=== PATIENT | male | born 1990 | race Caucasian/White ===

== ENCOUNTER 2019-01-12 11:34 | Emergency (ER) | payer OTHER ==
[2019-01-12 11:43] VITALS: BP 105/50; PULSE 60; TEMP 98; BMI 24.6
--- NOTE | 2019-01-12 11:52 | PDOC ---
History of Present Illness - General Chief Complaint: Injury Stated Complaint: RT ANKLE INJURY Time Seen by Provider: 01/12/19 11:50 History Source: Patient - History of Present Illness Initial Comments: 01/12/19 12:01 Chief complaint: ankle injury 28-year-old male complaining of right ankle pain after injury yesterday, playing soccer. Painful to walk. GENERAL/CONSTITUTIONAL: No fever, weakness. dizziness HEAD, EYES, EARS, NOSE AND THROAT: No change in vision. No ear pain or discharge. No sore throat. CARDIOVASCULAR: No chest pain RESPIRATORY: No shortness of breath or cough GASTROINTESTINAL: No pain, nausea, vomiting, diarrhea or constipation GENITOURINARY: No dysuria MUSCULOSKELETAL: No neck or back pain, +right ankle SKIN: No rash NEUROLOGIC: No headache, vertigo, loss of consciousness, or loss of sensation. GENERAL: The patient is awake, alert, and fully oriented, in no acute distress. HEAD: Normal with no signs of trauma. EYES: Pupils equal, round and reactive to light, sclera anicteric, conjunctiva clear. ENT: pharynx: no erythema, no exudate, uvula midline NECK: supple CHEST: clear, nontender, rr EXTREMITIES: The lower extremity with lateral malleoli or swelling at the ankle , no fifth metatarsal tenderness, no other swelling or tenderness, good range of motion, neurovascular intact. Rest of extremities, normal range of motion, no edema. NEUROLOGICAL: Normal speech, normal gait. SKIN: Warm, Dry 01/12/19 14:27 Timing/Duration: resolved prior to arrival Past History - Past Medical History Allergies/Adverse Reactions: Allergies Allergy/AdvReac Type Severity Reaction Status Date / Time No Known Allergies Allergy Verified 01/12/19 11:43 Home Medications: Ambulatory Orders Pseudoephedrine HCl [Sudafed] 30 mg PO Q6H #20 tablet 12/04/15 COPD: No - Suicide/Smoking/Psychosocial Hx Smoking History: Never smoked Information on smoking cessation initiated: No Hx Alcohol Use: No Drug/Substance Use Hx: No *Physical Exam - Vital Signs Last Vital Signs Temp Pulse Resp BP Pulse Ox 98 F 60 18 105/50 L 98 01/12/19 11:38 01/12/19 11:38 01/12/19 11:38 01/12/19 11:38 01/12/19 11:38 Procedures - Splinting Splint Location: Right: Ankle Pre-Proc Neuro Vasc Exam: normal Pre-Made Type: aircast Post-Proc Neuro Vasc Exam: normal Guille Bandage: no Medical Decision Making - Medical Decision Making 01/12/19 14:24 The 28-year-old male with right ankle injury, x-ray was negative, will put Aircast and crutches Patient is ambulatory in the ER Discussed issues, findings, results, applicable medications and treatments and follow-up. All these were understood and all questions were answered *DC/Admit/Observation/Transfer Diagnosis at time of Disposition: Right ankle injury Qualifiers: Encounter type: initial encounter Qualified Code(s): S99.911A - Unspecified injury of right ankle, initial encounter - Discharge Dispostion Disposition: HOME Condition at time of disposition: Stable Decision to Admit order: No - Referrals Referrals: Ankush Anderson MD [Staff Physician] - - Patient Instructions Printed Discharge Instructions: DI for Ankle Sprain Additional Instructions: elevate, wear splint, use crutches apply ice for 20 minutes every 2 hours for 2 days. you can take motrin 600 mg every 6 hours for pain call orthopedist for appointment - Post Discharge Activity Forms/Work/School Notes: Back to Work
[2019-01-12] MEDS ORDERED: IBUPROFEN 600 MG TABLET (FP) PO ONE ×3 (11:58→13:07)
== END 2019-01-12 13:17 | disposition home or self-care (01) ==
LOC: JERFT 11:34
PROC: 2W3QX1Z Immobilization of Right Lower Leg using Splint (ICD-10-PCS; principal; 2019-01-12)
DX: S99.811A Other specified injuries of right ankle, initial encounter (principal); X50.1XXA Overexertion from prolonged static or awkward postures, initial encounter; Y93.66 Activity, soccer; Y92.322 Soccer field as the place of occurrence of the external cause; Y99.8 Other external cause status
CPT/HCPCS: 73610-TC-RT-FY; 73630-TC-RT-FY; 99282-25